=== PATIENT | female | born 1955 | race Caucasian/White ===

== ENCOUNTER → 2022-07-19 | Outpatient (CLI) | payer BC, SELFPAY ==
[2022-07-19 11:34] LABS: Absolute Lymphocyte Count 1.77 X10^3/uL (0.83-4.51); Absolute Neutrophil Count 4.7 X10^3/uL (2.0-7.7); Basophil# 0.04 X10^3/uL; Basophil% 0.6 % (0-1); Eosinophil# 0.18 X10^3/uL; Eosinophils% 2.5 % (0-5); Erythrocyte Sedimentation Rate 23 mm/hr (0-30); Hematocrit 42.4 % (37-47); Hemoglobin 13.8 g/dL (12.0-15.0); Lymphocyte # 1.77 X10^3/ul (0.83-4.51); Lymphocyte % 24.4 % (19-41); Mean Corp Hgb Conc 32.5 g/dL (32-36); Mean Corpuscular Hgb 28.5 pg (27.0-32.0); Mean Corpuscular Volume 87.6 fL (81-99); Mean Platelet Vol. 8.4 fl (6.2-12.0); Monocyte% 6.9 % (0-10); NRBC Flagged by Analyzer 0 % (0-5); Neutrophil # 4.67 X10^3/uL (2.7-7.7); Neutrophil % 64.4 % (47-70); POSITIVE MORPHOLOGY YES; Platelet Count 283 K/mm3 (150-450); RBC Distribution Width CV 13.1 % (11.6-14.6); RBC Distribution Width SD 41.8 fl (35.1-43.9); Red Blood Count 4.84 M/mm3 (4.2-5.4); White Blood Count 7.3 K/mm3 (4.4-11.0)
[2022-07-19 11:36] LABS: Differential Indicated SCAN CRITERIA MET
[2022-07-19 12:01] LABS: ALB/GLOB Ratio 0.9 RATIO (0.9-2.4); AST(SGOT) 17 U/L (15-37); Alanine Aminotransfer ALT/SGPT 24 U/L (13-56); Albumin, Serum 3.2 g/dL (3.2-5.0); Alkaline Phosphatase 87 U/L (45-117); Anion Gap 3 (5-15); BUN 13 mg/dL (7-18); Calcium,Total 9.2 mg/dL (8.5-10.1); Chloride 107 mmol/L (98-107); Creatinine, Serum 0.87 mg/dL (0.55-1.02); EST Glomerular Filtration Rate 69 mL/min (>60); Est Glom Filt Rate - Afr Amer 84 mL/min (>60); Globulin 3.7 g/dL (2.2-4.2); Glucose 68 mg/dL (74-106); LDH 220 U/L (84-246); Potassium 4.1 mmol/L (3.5-5.1); Protein, Total 6.9 g/dL (6.4-8.2); Sodium Level 139 mmol/L (136-145)
[2022-07-20 13:08] LABS: Anti-Centromere B Ab <0.2 AI (0.0-0.9); Anti-Chromatin <0.2 AI (0.0-0.9); Anti-Jo <0.2 AI (0.0-0.9); Anti-Scleroderma-70 AB <0.2 AI (0.0-0.9); RNP Ab 0.2 AI (0.0-0.9); SJOGREN'S Anti-SS-A test < 0.2 AI (0.0-0.9); SJOGREN'S Anti-SS-B test < 0.2 AI (0.0-0.9); Smith Ab <0.2 AI (0.0-0.9)
[2022-07-20 15:08] LABS: Endomysial Antibody IgA Negative (Negative)
[2022-07-21 17:34] LABS: Immunoglobulin A 219 mg/dL (87-352); t-Transglutaminase IgA <2 U/mL (0-3)
[2022-07-21 18:44] LABS: Anti-dsDNA Ab <1 IU/mL (0-9)
[2022-07-27 09:08] LABS: Albumin 3.3 g/dL (2.9-4.4); Alpha-1-Globulins 0.3 g/dL (0.0-0.4); Alpha-2-Globulins 0.9 g/dL (0.4-1.0); Cytoplasmic Ab (C-ANCA) <1:20 titer (Neg:<1:20); Gamma Globulin 0.8 g/dL (0.4-1.8); Immunoglobulin A 217 mg/dL (87-352); Immunoglobulin E 40 IU/mL (6-495); Immunoglobulin G 792 mg/dL (586-1602); Immunoglobulin M 97 mg/dL (26-217); PROEL- TOTAL PROTEIN 6.2 g/dL (6.0-8.5)
[2022-07-27 15:17] LABS: Perinuclear Ab (P-ANCA) <1:20 titer (Neg:<1:20)
== END | disposition home or self-care (01) ==
LOC: LAB 10:25
PROVIDERS: PCP Internal Medicine; Referring Provider Nurse Practitioner Adult Health; Visit Provider Nurse Practitioner Adult Health
DX: R10.9 Unspecified abdominal pain (principal)
CPT/HCPCS: 36415; 80053; 82784; 82785; 83516; 83615; 84165; 85025; 85652; 86140; 86225; 86235; 86255; 86256; 86334

== ENCOUNTER 2022-09-20 05:21 | Day surgery (SDC) | payer BC, SELFPAY ==
[2022-09-20] MEDS: Lactated Ringers 1,000 ML 15 ML IV (05:45)
[2022-09-20 05:57] VITALS: BP 133/77; PULSE 70; RESP 18; TEMP 37.1; O2SAT 100; BMI 24.5
--- NOTE | 2022-09-20 06:30 | EGD_PTH ---
PATIENT: GENNA OCHOA LOC: EN U#:[id number] AGE/SX: 66/F ROOM: RE09/20/[address]: Dr. Bryan Pineda DO : 1955 BED: DIS: 09/20/2022 SPEC #: [id number] RECD: 09/20/22 10:28 STATUS: ANGELITO REArash #: [id number] CA: 09/20/22 06:[address]: Bryan Pineda DEPT: SURGICAL PATHOLOGY RECD BY: Genna Robertson ENTERED: 09/20/22 12:26 SP TYPE: EGD BIOPSY OT DR: Dr. Casie Thibodeaux MD Tissues: A - Gastric mucous membrane B - Esophagus, NOS C - COLON BIOPSY D - Rectum, NOS Procedures: Special Stain Group II Surgery Specimen Level IV Alcian Blue/PAS (control) HEADER OPERATION: Colonoscopy, EGD ([facility]), biopsy PRE-OP DIAGNOSIS: Abdominal pain TISSUE SUBMITTED: A ? Gastric body ulcer biopsy, B ? Distal esophagus biopsy, C ? Splenic flexure biopsy, D ? Rectal biopsy MICROSCOPIC DIAGNOSIS A. Gastric body ulcer, biopsy: Fragments of gastric mucosa with ulceration and acute and chronic inflammation. See comment. B. Distal esophagus, biopsy: Fragments of gastroesophageal mucosa with chronic inflammation. Intestinal metaplasia (goblet cell metaplasia) not identified. See comment. C. 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 D. Rectal biopsy: A minute fragment of colonic mucosa, no pathologic diagnosis. SJ:roel 09/21/2022 COMMENT A. The results of immunohistochemistry for Helicobacter pylori will be reported separately ([id number]). C. Alcian blue/PAS stain with matched control is used in the evaluation of the specimen. MICROSCOPIC DESCRIPTION Slides are reviewed. GROSS DESCRIPTION A - Received in fixative is one container labeled with the patient's name and designated gastric body ulcer biopsy. The specimen consists of two irregular fragments of light tang soft tissue that in aggregate measure 0.6 x 0.5 x 0.1 cm. The specimen is totally submitted in one cassette. B - Received in fixative is one container labeled with the patient's name and designated distal esophagus biopsy. The specimen consists of three irregular fragments of light tang soft tissue that in aggregate measure 0.9 x 0.3 x 0.1 cm. The specimen is totally submitted in one cassette. C - Received in fixative is one container labeled with the patient's name and designated splenic flexure biopsy. The specimen consists of multiple irregular fragments of light tang soft tissue that in aggregate measure 1 x 0.5 x 0.1 cm. The specimen is totally submitted in one cassette. D - Received in fixative is one container labeled with the patient's name and designated rectal biopsy. The specimen consists of one irregular fragment of light tang soft tissue that measures 0.2 x 0.2 x 0.1 cm. The specimen is totally submitted in one cassette. / AM:roel 09/20/2022 TC:2 CPT: 51373 x4, 66787
--- NOTE | 2022-09-20 06:30 | IMM_PTH ---
PATIENT: ANAMARIA OCHOA LOC: EN U#:[id number] AGE/SX: 66/F ROOM: RE09/20/[address]: Dr. Bryan Pineda DO : 1955 BED: DIS: 09/20/2022 SPEC #: [id number] RECD: 09/20/22 14:52 STATUS: ANGELITO REQ #: [id number] CA: 09/20/22 06:[address]: Bryan Pineda DEPT: IMMUNOHISTOCHEMISTRY RECD BY: Paulina Garsia ENTERED: 09/20/22 14:52 SP TYPE: IMMUNO OTHR DR: Dr. Casie Thibodeaux MD Tissues: A - Stomach, NOS Procedures: H Pylori (initial) PHYSICIAN & INSTITUTION [place] [id number] SPECIMEN INFORMATION: Tissue Source: A ? Gastric body ulcer Clinical Info: Abdominal pain Specimen Number: [id number] CPT code: 34117 METHODOLOGY: Deparaffinized sections of prefer/formalin-fixed tissue or PAP/DQ stained slides are incubated with monoclonal/polyclonal antibodies/oligonucleotide probes. Localization is made via biotin free immunoperoxidase method. Appropriate controls are performed and reacted as expected. Results on target cell population are indicated in the following table: RESULTS: ANTIBODY / CLONE RESULT Block A H Pylori (polyclonal) negative These tests were developed and their performance characteristics determined by [facility]. They may not have been cleared or approved by the U.S. Food and Drug Administration. The FDA has determined that such clearance or approval is not necessary. The above immunohistochemical/dualISH markers are ordered and reviewed by the Pathologist. INTERPRETATION: A. Gastric body ulcer, biopsy: Negative for Helicobacter pylori organisms. SJ:roel 09/21/2022
--- NOTE | 2022-09-20 06:30 | HP.PCM_ITS ---
History and Physical Date of Admission: 09/20/22 ANAMARIA OCHOA, is a 66 F who presents to the office today for initial consult/second opinion for one yr of left lower quadrant abd pain.? This is a severe pain that occurs intermittently with some bowel movements; these bowel movements tend to be large and soft.? Often she will have immediate vomiting also.? Pain has been occurring more often over time. Some nausea too. Gets migraines.? The pain seems random.? She also has a lower abdominal tenderness which occurs on a more regular basis and is not related to bowel movements.? This tenderness can be after eating but can be at random other times.? The symptoms started maybe 2.5 yrs ago, first time was with BM, then had to vomit. Vomiting is only related to these episodes, she's not sure if it's due to the pain or not, but it does not seem to be due to pain. The BMs that trigger pain are large. Doesn't vomit every time, usually at least nauseous most of the episodes. The severe pain only occurs with BM. No melena or hematochezia. She isn't constipated. The stools are soft. BM almost every day. Initially episodes were about 4 mos apart, now happening more frequently, wonders if related to stress. No dysphagia. Occas acid reflux in past 2 yrs.? Upcoming surgery at [facility] Dr Thakkar for possible renal cell carcinoma, 07/25/22 04/25/22 CT abd pel w/ IV contrast at [facility]--2.4 cm right renal mass. Colonic diverticulosis. 05/10/22 MRI kidney at [facility]--enhancing lower pole right renal mass 2.5 x 2.8 cm concerning for primary RCC, and smaller 1.2 cm enhancing mass involving the lateral interpolar right kidney is also concerning for a RCC. Evaluated 05/31/[address] Mcneil--abdominal migraine vs pelvic muscle spasms; he recommended imitrex during these episodes, try to relax and squat during episodes, no need for colonoscopy. Hx diverticula and polyps on colonoscopy with Dr Sneed at [facility] Parents had bleeding ulcers, father had IBS, sister has IBS. ROS Const Constitutional: Positive for fatigue and weight change ENT ENT: No difficulty swallowing Gastro GI: Positive for abdominal pain, change in bowel habits, constipation, heartburn, nausea/dyspepsia and vomiting; No belching, bloating, change in stool character, coffee ground emesis, cramping, diarrhea, difficulty swallowing, feeling full early, excessive flatus, incontinent of stools, Vomiting blood/hematemesis, Blood in stool, loose stools, Black,tarry stools, pain with swallowing or other Musc Musculoskeletal: Positive for back pain and muscle weakness; No joint pain Skin Skin: No yellowing of the eye or itchy eyes Psych Psychiatric: No anxiety and No depression Endo Endocrine: Positive for fatigue and weight change Aller/Imm Allergy/Immunologic: No itchy eyes David/Lymp Hematologic/Lymphatic: Positive for easy bruising; No easy bleeding Exam Const General: cooperative, healthy appearing and comfortable Nutritional Appearance: average body habitus Orientation: alert, awake and oriented x3 HENMT Head: normal to inspection Eyes General: appearance normal, both eyes and all related structures Resp Effort & Inspection: normal respiratory effort GI Inspection: normal to inspection Palpation: soft, no hepatosplenomegaly, no masses and tender in the LLQ Skin General: no rashes or lesions noted Neuro Gait: normal gait Quality Reporting Tobacco Screening (CMS 138) Smoking Status: Never smoker Assessment and Plan Assessment and Plan (1) Abdominal pain: ?Status:?Acute ?Plan: 66 yr old female with recurrent episodes of severe left lower quadrant pain that occur with bowel movement and accompanied by vomiting.? She also has a milder discomfort throughout the lower abdomen that occurs more often regardless of bowel movements.? Relatively recent onset of acid reflux.? DDx includes IBD, SCAD, abdominal migraines, ischemia although she has no blood per rectum Get labs and stool studies??to include tests for inflammation, celiac disease, autoimmune.? We will notify her of results and any further work-up needed. Schedule EGD and colonoscopy, SuTab prep per her request, 2-week follow-up after endoscopies to discuss biopsy results ? ? ? Orders: Orders Comprehensive Metabolic Profil Today R10.9 - Unspecified abdominal pain ? CRP Today R10.9 - Unspecified abdominal pain ? LDH Today R10.9 - Unspecified abdominal pain ? CBC W/Diff, Automated Today K58.9 - Irritable bowel syndrome without diarrhea, R10.9 - Unspecified abdominal pain ? Erythrocyte Sed Rate Today R10.9 - Unspecified abdominal pain ? CHRISTINA Comprehensive Panel Today R10.9 - Unspecified abdominal pain ? Calprotectin, Stool Today R10.9 - Unspecified abdominal pain ? Stool Lactoferrin/WBC Today K58.9 - Irritable bowel syndrome without diarrhea, R10.9 - Unspecified abdominal pain ? ANCA Today R10.9 - Unspecified abdominal pain ? Celiac Disease Profile Today R10.9 - Unspecified abdominal pain ? Immunoglobulins G/A/M/E Today R10.9 - Unspecified abdominal pain ? BILL + Protein Elect, Serum Today R10.9 - Unspecified abdominal pain ? Medications: New sod sulf-pot chloride-mag sulf 1.479-0.188- 0.225 gram (Sutab) ?PO PER PKG DIR 24 tabs 0RF ? ? I have examined the patient and the H&P has been reviewed. There are no clinical changes since date of exam.
[2022-09-20 07:05] VITALS: BP 119/65; BP 133/77; PULSE 64; RESP 16; TEMP 36.3; O2SAT 99
[2022-09-20 07:10] VITALS: BP 119/74; BP 133/77; PULSE 61; RESP 16; O2SAT 100
--- NOTE | 2022-09-20 07:10 | OP.CCLET_ITS ---
09/20/2022 Casie Thibodeaux [address] [id number] Re : Upper GI endoscopy procedure for Genna Prado Dear Dr. Thibodeaux This procedure was performed on September. My impressions and recommendations are as follows: Impressions : - Z-line irregular, 37 cm from the incisors. Biopsied. - Small hiatal hernia. - Oozing gastric ulcer with pigmented material. Treated with a heater probe. Biopsied. - Normal second portion of the duodenum. Recommendations : - Discharge patient to home. - Resume previous diet. - No aspirin, ibuprofen, naproxen, or other non-steroidal anti-inflammatory drugs for 8 weeks. - Await pathology results. - Repeat upper endoscopy in 3 months for surveillance. - Use Protonix (pantoprazole) 40 mg PO BID for 8 weeks. - Use sucralfate tablets 1 gram PO BID for 4 weeks. My findings are described in the full procedure note, which is enclosed. If I can be of further assistance, please feel free to contact me at . Sincerely, Bryan Pineda, 09/20/2022 7:09:15 AM This report has been signed electronically.
--- NOTE | 2022-09-20 07:10 | OP.EGD_ITS ---
Patient Name: Genna Prado Procedure Date: 09/20/2022 6:16 AM Date of : 1955 Age: 66 Procedure: Upper GI endoscopy Indications: Epigastric abdominal pain, Dyspepsia Providers: Bryan Pineda DO Referring MD: Bryan Pineda DO Medicines: Propofol per Anesthesia, Monitored Anesthesia Care Patient Profile: This is a 66 year old female. Refer to note in patient chart for documentation of history and physical. Patient has symptoms of acute epigastric abdominal pain. Complications: No immediate complications. Procedure: Pre-Anesthesia Assessment: - Prior to the procedure, a History and Physical was performed, and patient medications and allergies were reviewed. The patient is competent. The risks and benefits of the procedure and the sedation options and risks were discussed with the patient. All questions were answered and informed consent was obtained. Patient identification and proposed procedure were verified by the physician. Mental Status Examination: alert and oriented. Airway Examination: normal oropharyngeal airway and neck mobility. Respiratory Examination: clear to auscultation. CV Examination: normal. Prophylactic Antibiotics: The patient does not require prophylactic antibiotics. Prior Anticoagulants: The patient has taken no previous anticoagulant or antiplatelet agents. ASA Grade Assessment: II - A patient with mild systemic disease. After reviewing the risks and benefits, the patient was deemed in satisfactory condition to undergo the procedure. The anesthesia plan was to use monitored anesthesia care (MAC). Immediately prior to administration of medications, the patient was re-assessed for adequacy to receive sedatives. The heart rate, respiratory rate, oxygen saturations, blood pressure, adequacy of pulmonary ventilation, and response to care were monitored throughout the procedure. The physical status of the patient was re-assessed after the procedure. After obtaining informed consent, the endoscope was passed under direct vision. Throughout the procedure, the patient's blood pressure, pulse, and oxygen saturations were monitored continuously. The Colonoscope was introduced through the mouth, and advanced to the second part of duodenum. The upper GI endoscopy was accomplished without difficulty. The patient tolerated the procedure well. Scope In: 6:38:34 AM Scope Out: 6:43:18 AM Total Procedure Duration Time 0 hours 4 minutes 44 seconds Findings: The Z-line was irregular and was found 37 cm from the incisors. Biopsies were taken with a cold forceps for histology. Verification of patient identification for the specimen was done. Estimated blood loss was minimal. A small hiatal hernia was present. One oozing cratered gastric ulcer with pigmented material was found in the gastric body. The lesion was 6 mm in largest dimension. Coagulation for hemostasis using heater probe was successful. Biopsies were taken with a cold forceps for histology. Verification of patient identification for the specimen was done. Estimated blood loss was minimal. The second portion of the duodenum was normal. Impression: - Z-line irregular, 37 cm from the incisors. Biopsied. - Small hiatal hernia. - Oozing gastric ulcer with pigmented material. Treated with a heater probe. Biopsied. - Normal second portion of the duodenum. Recommendation: - Discharge patient to home. - Resume previous diet. - No aspirin, ibuprofen, naproxen, or other non-steroidal anti-inflammatory drugs for 8 weeks. - Await pathology results. - Repeat upper endoscopy in 3 months for surveillance. - Use Protonix (pantoprazole) 40 mg PO BID for 8 weeks. - Use sucralfate tablets 1 gram PO BID for 4 weeks. Procedure Code(s): --- Professional --- 95731, 59, Esophagogastroduodenoscopy, flexible, transoral; with control of bleeding, any method 52121, Esophagogastroduodenoscopy, flexible, transoral; with biopsy, single or multiple CPT copyright 2017 [employer]. All rights reserved. The codes documented in this report are preliminary and upon medical biller/coder review may be revised to meet current compliance requirements. Bryan Pineda DO 09/20/2022 7:09:15 AM This report has been signed electronically. Number of Addenda: 0 Note Initiated On: 09/20/2022 6:16 AM
[2022-09-20 07:15] VITALS: BP 127/74; BP 133/77; PULSE 60; RESP 16; O2SAT 100
--- NOTE | 2022-09-20 07:17 | OP.CCLET_ITS ---
09/20/2022 Casie Thibodeaux [address] [place] [address] Re : Colonoscopy procedure for Genna Prado Dear Dr. Thibodeaux This procedure was performed on September. My impressions and recommendations are as follows: Impressions : - Diverticulosis in the recto-sigmoid colon, in the sigmoid colon, in the descending colon, at the splenic flexure and at the hepatic flexure. - Congested mucosa at the splenic flexure. Biopsied. - Stool in the rectum, in the recto-sigmoid colon, in the sigmoid colon, in the descending colon, at the splenic flexure, in the transverse colon and in the cecum. Recommendations : - Discharge patient to home. - Resume previous diet. - Continue present medications. - Await pathology results. - Repeat colonoscopy in 5 years for surveillance. My findings are described in the full procedure note, which is enclosed. If I can be of further assistance, please feel free to contact me at . Sincerely, Bryan Pineda, 09/20/2022 7:16:20 AM This report has been signed electronically.
--- NOTE | 2022-09-20 07:17 | OP.COLON_ITS ---
Patient Name: Genna Prado Procedure Date: 09/20/2022 6:43 AM Date of : 1955 Age: 66 Procedure: Colonoscopy Indications: Screening for colorectal malignant neoplasm Providers: Bryan Pineda DO Referring MD: Bryan Pineda DO Medicines: Monitored Anesthesia Care Patient Profile: This is a 66 year old female. Refer to note in patient chart for documentation of history and physical. Patient has symptoms of acute epigastric abdominal pain. Last Colonoscopy: 10 years ago. Complications: No immediate complications. Procedure: Pre-Anesthesia Assessment: - Prior to the procedure, a History and Physical was performed, and patient medications and allergies were reviewed. The patient is competent. The risks and benefits of the procedure and the sedation options and risks were discussed with the patient. All questions were answered and informed consent was obtained. Patient identification and proposed procedure were verified by the physician. Mental Status Examination: alert and oriented. Airway Examination: normal oropharyngeal airway and neck mobility. Respiratory Examination: clear to auscultation. CV Examination: normal. Prophylactic Antibiotics: The patient does not require prophylactic antibiotics. Prior Anticoagulants: The patient has taken no previous anticoagulant or antiplatelet agents. ASA Grade Assessment: II - A patient with mild systemic disease. After reviewing the risks and benefits, the patient was deemed in satisfactory condition to undergo the procedure. The anesthesia plan was to use monitored anesthesia care (MAC). Immediately prior to administration of medications, the patient was re-assessed for adequacy to receive sedatives. The heart rate, respiratory rate, oxygen saturations, blood pressure, adequacy of pulmonary ventilation, and response to care were monitored throughout the procedure. The physical status of the patient was re-assessed after the procedure. After I obtained informed consent, the scope was passed under direct vision. Throughout the procedure, the patient's blood pressure, pulse, and oxygen saturations were monitored continuously. The Colonoscope was introduced through the anus and advanced to the terminal ileum. The colonoscopy was performed without difficulty. The patient tolerated the procedure well. The quality of the bowel preparation was adequate. Scope In: 6:45:54 AM Scope Withdrawal Time 0 hours 11 minutes 33 seconds Scope Out: 7:01:55 AM Total Procedure Duration Time 0 hours 16 minutes 1 second Findings: The perianal and digital rectal examinations were normal. Multiple small and large-mouthed diverticula were found in the recto-sigmoid colon, sigmoid colon, descending colon, splenic flexure and hepatic flexure. An area of moderately congested mucosa was found at the splenic flexure. Biopsies were taken with a cold forceps for histology. Verification of patient identification for the specimen was done. Estimated blood loss was minimal. Stool was found in the rectum, in the recto-sigmoid colon, in the sigmoid colon, in the descending colon, at the splenic flexure, in the transverse colon and in the cecum. Patchy mild inflammation characterized by erythema was found in the rectum. Biopsies were taken with a cold forceps for histology. Verification of patient identification for the specimen was done. Estimated blood loss was minimal. Impression: - Diverticulosis in the recto-sigmoid colon, in the sigmoid colon, in the descending colon, at the splenic flexure and at the hepatic flexure. - Congested mucosa at the splenic flexure. Biopsied. - Stool in the rectum, in the recto-sigmoid colon, in the sigmoid colon, in the descending colon, at the splenic flexure, in the transverse colon and in the cecum. Recommendation: - Discharge patient to home. - Resume previous diet. - Continue present medications. - Await pathology results. - Repeat colonoscopy in 5 years for surveillance. Procedure Code(s): --- Professional --- 66770, Colonoscopy, flexible; with biopsy, single or multiple CPT copyright 2017 [employer]. All rights reserved. The codes documented in this report are preliminary and upon professional fee coder review may be revised to meet current compliance requirements. Bryan Pineda DO 09/20/2022 7:16:20 AM This report has been signed electronically. Number of Addenda: 0 Note Initiated On: 09/20/2022 6:43 AM
[2022-09-20 07:20] VITALS: BP 127/74; BP 133/77; PULSE 60; RESP 16; TEMP 36.1; O2SAT 100
[2022-09-20 07:40] VITALS: BP 133/77
== END 2022-09-20 08:01 | disposition home or self-care (01) ==
LOC: EN 05:22 → AC 05:25
PROVIDERS: PCP Internal Medicine; Referring Provider Internal Medicine; Visit Provider Internal Medicine Gastroenterology
PROC: 0DJD8ZZ Inspection of Lower Intestinal Tract, Via Natural or Artificial Opening Endoscopic (ICD-10-PCS; CPT 45378; principal; 2022-09-20 06:25)
DX: K25.9 Gastric ulcer, unspecified as acute or chronic, without hemorrhage or perforation (principal); K57.90 Diverticulosis of intestine, part unspecified, without perforation or abscess without bleeding; K44.9 Diaphragmatic hernia without obstruction or gangrene; K21.9 Gastro-esophageal reflux disease without esophagitis; R10.9 Unspecified abdominal pain; K58.9 Irritable bowel syndrome, unspecified; Z86.010 Personal history of colon polyps
CPT/HCPCS: 43239; 43255; 45380; 88305; 88313; 88342; J7120; J2405